=== PATIENT | female | born 1970 | race African-American/Black ===

== ENCOUNTER 2018-10-25 12:32 | Emergency (ER) | payer OTHER, SELFPAY | END 2018-10-25 13:16 | LOC: NAV ERS 12:32 | DX: M54.5 Low back pain (principal); I10 Essential (primary) hypertension; G43.909 Migraine, unspecified, not intractable, without status migrainosus; E66.9 Obesity, unspecified; F32.9 Major depressive disorder, single episode, unspecified; Z79.899 Other long term (current) drug therapy; V43.52XA Car driver injured in collision with other type car in traffic accident, initial encounter | CPT/HCPCS: 99283 ==